=== PATIENT | male | born 1980 | race African-American/Black ===

== ENCOUNTER 2017-05-08 01:55 | Emergency (ER) | payer OTHER ==
[~2017-05-08] VITALS: Ht 175.3 cm; Wt 99.8 kg
--- NOTE | ~2017-05-08 | EKG ---
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 : 1980 Requested By: Melinda Austin Order Number: [id number] MD: David An Measurements Intervals [place] Rate: 96 P: 47 [place]: 184 QRS: -25 QRSD: 103 T: 36 QT: 325 QTc: 411 Interpretive Statements Sinus rhythm Abnormal R-wave progression, late transition Left ventricular hypertrophy No previous ECG available for comparison Electronically Signed On 05-08-2017 8:28:36 CDT by David An [email or web address] <ELECTRONICALLY SIGNED> By: David An MD, [facility] 05/08/17 0828 0201 020 David An MD, FACC /EPI
--- NOTE | ~2017-05-08 | EKG ---
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
[2017-05-08 02:25] LABS: ABSOLUTE NEUTROPHILS 6.2 thou/uL (1.4-8.2); BASOPHILS 0.9 % (0.0-2.0); EOSINOPHILS 1.1 % (0.0-3.0); HEMATOCRIT 43.7 % (42.0-52.0); HEMOGLOBIN 15.4 gm/dL (14.0-18.0); LYMPHOCYTES 39.9 % (24.0-44.0); MANUAL DIFF NO; MCH 30.4 pg (26.0-34.0); MCHC 35.3 g/dL (28.0-37.0); MCV 86.1 fL (80.0-100.0); MONOCYTES 6.6 % (1.0-8.0); PLATELET COUNT 216 thou/uL (150-400); POLYS 51.5 % (36.0-66.0); RBC 5.08 mil/uL (4.50-6.00); RDW 13.2 % (10.5-14.5); WBC 12.1 thou/uL (4.0-11.0)
[2017-05-08 02:32] LABS: ANION GAP 8 mmol/L (7-16); BUN 11 mg/dL (7-18); CALCIUM 9.3 mg/dL (8.5-10.1); CHLORIDE 103 mmol/L (98-107); CO2 28 mmol/L (21-32); CREATININE 1.2 mg/dL (0.7-1.3); GLUCOSE 157 mg/dL (74-106); POTASSIUM 3.5 mmol/L (3.5-5.1); SODIUM 139 mmol/L (136-145)
[2017-05-08 02:41] LABS: ALBUMIN 3.9 g/dL (3.4-5.0); ALKALINE PHOSPHATASE 72 U/L (46-116); DIRECT BILIRUBIN < 0.1 mg/dL (<0.1-0.3); SGOT 37 U/L (15-37); SGPT 49 U/L (30-65); TOTAL BILIRUBIN 0.5 mg/dL (<0.1-1.0); TOTAL PROTEIN 8.2 g/dL (6.4-8.2); TROPONIN-I 0.06 ng/mL (<0.04-0.07)
[2017-05-08 04:37] VITALS: BP 127/83
== END 2017-05-08 04:38 | disposition home or self-care (01) ==
LOC: ER 01:55
PROVIDERS: Emergency Medicine
DX: R07.89 Other chest pain (principal); F10.99 Alcohol use, unspecified with unspecified alcohol-induced disorder

== ENCOUNTER 2018-10-21 06:57 | Emergency (ER) | payer OTHER ==
[~2018-10-21] VITALS: Ht 175.3 cm; Wt 99.8 kg
[2018-10-21] MEDS ORDERED: ATIVAN0.5 MG PO (07:25)
[2018-10-21] MEDS ORDERED: LISINOPRIL-HCT1 EAC1 PO (07:25)
[2018-10-21] MEDS ORDERED: OXYCODONE-ACET1 EACH PO (07:26)
[2018-10-21 07:35] LABS: HEMOGLOBIN 15.1 gm/dL (14.0-18.0); MCHC 34.3 g/dL (28.0-37.0); MCV 87.3 fL (80.0-100.0); RBC 5.04 mil/uL (4.50-6.00); RDW 12.8 % (10.5-14.5); WBC 6.2 thou/uL (4.0-11.0)
[2018-10-21 07:38] LABS: ANION GAP 10 mmol/L (7-16); BUN 15 mg/dL (7-18); CALCIUM 8.8 mg/dL (8.5-10.1); CHLORIDE 105 mmol/L (98-107); CO2 26 mmol/L (21-32); CREATININE 1.1 mg/dL (0.7-1.3); GLUCOSE 114 mg/dL (74-106); POTASSIUM 3.5 mmol/L (3.5-5.1); SODIUM 141 mmol/L (136-145)
--- NOTE | 2018-10-21 07:40 | EKG ---
[address] [address] [facility] [place] [address] ELECTROCARDIOGRAM REPORT Name: NICK REBOLLAR Room #: [facility] M.R.#: [id number] ������������������ Admission: ������������������ Attend Phys: Discharge: ������������������ Date of : 78 Report #: [id number] ����������������������������������������������������������������� [id number] THIS REPORT FOR: //name// [facility] ED Test Date: 2018-10-21 Test Time: 07:12:35 Pat Name: NICK REBOLLAR Department: Room: Gender: M Hematology Technician: Hunter CHAPMAN RN : 1980 Requested By: Cristobal Conklin Order Number: [id number] MD: David An Measurements Intervals [place] Rate: 84 P: 52 SD: 185 QRS: -17 QRSD: 107 T: 29 QT: 347 QTc: 411 Interpretive Statements Sinus rhythm Nonspecific intraventricular conduction delay Compared to ECG 05/08/2017 04:00:16 No significant changes Electronically Signed On 10-21-2018 7:40:45 SCRAP CHARGER by David An [email or web address] ��������������������������������������������� <ELECTRONICALLY SIGNED> ���������������������������������������� By: David An MD, [facility] ��������������������������������������������� 10/21/18 0740 0712 1 David An MD, FACC /EPI
[2018-10-21 07:46] LABS: TROPONIN-I <0.06 ng/mL (<0.06)
[2018-10-21] MEDS ORDERED: NAPROSYN500 MG PO (08:15)
[2018-10-21 08:19] VITALS: BP 111/80
== END 2018-10-21 08:25 | disposition home or self-care (01) ==
LOC: ER 06:57
PROVIDERS: Emergency Medicine
DX: R51 Headache (principal); R07.89 Other chest pain; M79.641 Pain in right hand; I10 Essential (primary) hypertension

== ENCOUNTER 2019-05-01 17:57 | Emergency (ER) | payer OTHER ==
[~2019-05-01] VITALS: Ht 175.3 cm; Wt 112.0 kg
--- NOTE | ~2019-05-01 | EKG ---
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
[~2019-05-01 17:57] MED LIST: ATIVAN0.5 MG PO; LISINOPRIL-HCT1 EAC1 PO; NAPROSYN500 MG PO; OXYCODONE-ACET1 EACH PO
[2019-05-01] MEDS ORDERED: ATIVAN0.5 MG PO (19:20)
[2019-05-01] MEDS ORDERED: LISINOPRIL-HCT1 EAC1 PO (19:20)
[2019-05-01 21:02] VITALS: BP 139/96
== END 2019-05-01 21:02 | disposition home or self-care (01) ==
LOC: ER 17:57
DX: I10 Essential (primary) hypertension (principal); F41.9 Anxiety disorder, unspecified

== ENCOUNTER 2019-06-20 13:34 | Emergency (ER) | payer BC, OTHER ==
[~2019-06-20] VITALS: Ht 177.8 cm; Wt 112.0 kg
[2019-06-20 14:12] LABS: ABSOLUTE NEUTROPHILS 6.8 thou/uL (1.4-8.2); BASOPHILS 0.3 % (0.0-2.0); EOSINOPHILS 0.1 % (0.0-3.0); HEMATOCRIT 42.8 % (42.0-52.0); LYMPHOCYTES 13.3 % (24.0-44.0); MCH 30.7 pg (26.0-34.0); MCHC 35.1 g/dL (28.0-37.0); MCV 87.3 fL (80.0-100.0); MONOCYTES 5.7 % (1.0-8.0); PLATELET COUNT 223 thou/uL (150-400); POLYS 80.6 % (36.0-66.0); RDW 12.6 % (10.5-14.5); WBC 8.4 thou/uL (4.0-11.0)
[2019-06-20 14:27] LABS: ANION GAP 7 mmol/L (7-16); BUN 11 mg/dL (7-18); CALCIUM 9.5 mg/dL (8.5-10.1); CHLORIDE 99 mmol/L (98-107); CO2 30 mmol/L (21-32); CREATININE 1.2 mg/dL (0.7-1.3); GLUCOSE 145 mg/dL (74-106); POTASSIUM 3.1 mmol/L (3.5-5.1); SODIUM 136 mmol/L (136-145)
[2019-06-20 14:36] LABS: MAGNESIUM 1.7 mg/dL (1.8-2.4); TROPONIN-I <0.06 ng/mL (<0.06)
[2019-06-20 15:24] VITALS: BP 133/88
--- NOTE | 2019-06-23 08:54 | EKG ---
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: : 1980 Requested By: Grant Zamora Order Number: [id number] MD: David An Measurements Intervals [place] Rate: 71 P: 42 [place]: 194 QRS: -21 QRSD: 110 T: 18 QT: 381 QTc: 414 Interpretive Statements Sinus rhythm Abnormal R-wave progression, late transition Left ventricular hypertrophy Compared to ECG 05/01/2019 18:17:32 No significant changes Electronically Signed On 06-23-2019 8:54:00 CDT by David An [email or web address] <ELECTRONICALLY SIGNED> By: David An MD, [facility] 06/23/19 0854 1350 1350 David An MD, FACC /EPI
== END 2019-06-20 15:20 | disposition home or self-care (01) ==
LOC: ER 13:34
PROVIDERS: Emergency Medicine
DX: E87.6 Hypokalemia (principal); E83.42 Hypomagnesemia; R53.1 Weakness; I10 Essential (primary) hypertension

== ENCOUNTER 2021-02-27 00:16 | Inpatient (IN) | payer OTHER ==
[~2021-02-27] VITALS: Ht 177.8 cm; Wt 120.7 kg
[2021-02-27 03:30] VITALS: BP 108/75
--- NOTE | 2021-02-27 04:48 | NUR ---
Pt admitted from [facility] after testing positive for covid and c/o of soa, fever, cough and fatigue. Report received from Neha ROBLES from [facility]. Pt has history of htn, hld, diet controlled diabetes, and back surgery with hardware. Admission assessment and history completed. Pt oriented to room, call light and poc. Iv to lac with ns@100cc/hr infusing as ordered. Voiding per adelfo. Telemetry intact reading sr with rates in the 60's.
[2021-02-27 08:03] VITALS: BP 125/85
[2021-02-27 16:41] VITALS: BP 127/78
--- NOTE | 2021-02-27 18:03 | NUR ---
RN ASSUMED PT'S CARE AT 0700AM, PT IS A&OX4, PT IS ON ISOLATION FOR POSITIVE COVID, PT'S VS ARE STABLE, PT IS ON O2 3L/MIN/NC, PT HAS SOB WITH ACTIVITIES, PT GETS UP TO BATH ROOM BY HIMSELF, PT DENIES PAIN BY THIS TIME.
[2021-02-27 19:57] VITALS: BP 132/81
[2021-02-28 02:05] LABS: GLYCOHEMOGLOBIN (HGB A1C) 5.6 % (4.8-5.6)
--- NOTE | 2021-02-28 02:18 | NUR ---
POC FOR MAINTAINING 02 SATURATION. PT CURRENTLY ON 3L WITH NO ISSUES. NO 02 USE AT HOME. A/0 X4. COVID ASSOCIATED WEAKNESS AND LETHARGIC. AD FREDERIC, VOIDS INDEPENDENTLY AND NO OTHER COMPLAINTS. VSS AND AFEBRILE. HOURLY ROUNDING.
[2021-02-28 04:16] VITALS: BP 127/74
[2021-02-28 05:25] LABS: ALBUMIN 3.3 g/dL (3.4-5.0); CALCIUM 8.2 mg/dL (8.5-10.1); CREATININE 1.3 mg/dL (0.7-1.3); PHOSPHORUS 2.7 mg/dL (2.5-4.9); POTASSIUM 3.9 mmol/L (3.5-5.1)
[2021-02-28 07:37] VITALS: BP 129/90
[2021-02-28 08:40] VITALS: BP 129/90
--- NOTE | 2021-02-28 09:46 | NUR ---
Assess due to RD consult for wt change. Admit with COVID+, acute respiratory failure. Chart mentions hx diabetes with no diabetic medications following substantial wt loss. However, called pt for nutrition interview, pt states "I don't have diabetes, and I haven't lost any wt" ?? A1C 5.6. BG slightly elevated but on steroid. Appetite is good. Low nutrition risk.
[2021-02-28 15:13] VITALS: BP 123/89
--- NOTE | 2021-02-28 15:40 | NUR ---
INITIAL ASSESSMENT: GWEN reviewed chart and spoke with nursing and attending physician. Pt was transferred to [facility] from [facility] due to COVID pneumonia. Pt is in Enhanced Isolation. Pt is afebrile and on 4L of O2. Pt is on IV abx and IV steroids. SW placed call to pt's room. Line is busy. Per chart, pt is alert/orientated x 4. Pt lives at home with his family, who also have COVID. Pt listed as patient pay. [employer] to screen pt for Medicaid and/or financial assistance. SW will follow up with pt at a later time and assist as needed with discharge planning.
--- NOTE | 2021-02-28 16:16 | NUR ---
RN ASSUMED PT'S CARE AT 0700AM, PT IS A&OX4, PT IS CONTINUING IV ABX,AND O2 3L/MIN/NC AND BREATHING MANAGEMENT, PT'S SOB HAS IMPROVED, PT'S VS ARE STABLE, PT DENIES PAIN AND SOB AT THIS TIME. PT STAIES COVID ISOLATION , PT GETS UP TO WALK AT HIS ROOM WITHOUT ASSIST.
[2021-02-28 17:06] VITALS: BP 119/73
[2021-02-28 20:39] VITALS: BP 126/83
[2021-03-01 04:02] VITALS: BP 110/76
--- NOTE | 2021-03-01 06:06 | NUR ---
NO SIGNIFICANT EVENTS DURING THE NIGHT. O2 TITRATED DOWN FROM 3L TO 2L NC. SPO2 >92%. UP AD FREDERIC TO BTR TO VOID. GOOD URINE OUTPUT. LOW GRADE FEVER (T-MAX 99.4). PT C/O HEADACHE DURING THE NIGHT. TYLENOL GIVEN, WHICH RESULTED IN COMPLETE PAIN RELIEF. PT C/O MILD SOA W/ EXERTION. NO S/S RESP DISTRESS NOTED. PROGRESSING TOWARD POC GOALS. WILL GIVE REPORT TO ONCOMING NURSE.
[2021-03-01 06:08] LABS: ALBUMIN 3.2 g/dL (3.4-5.0); CALCIUM 7.7 mg/dL (8.5-10.1); CREATININE 1.4 mg/dL (0.7-1.3); PHOSPHORUS 4.3 mg/dL (2.5-4.9); POTASSIUM 3.4 mmol/L (3.5-5.1)
[2021-03-01 06:55] VITALS: BP 111/70
[2021-03-01 08:30] VITALS: BP 111/70
--- NOTE | 2021-03-01 12:54 | NUR ---
GWEN reviewed chart and spoke with nursing and attending physician. Pt remains in Enhanced Isolation due to COVID. Pt is afebrile and on 2L of O2. Pt is on IV abx, IV steroids and IV lasix. Discharge home is anticipated in 1-2 days. GWEN spoke with pt via phone. Introduced role of GWEN. Pt is alert/orientated x 4. Pt report he lives at home with his family in [place]. Prior to admission, pt was independent with ADLs. Pt is employed. No hx of HH or post-acute placement. Pt states his insurance recently changed and he is going to return to [facility] where he used to receive primary care. Pt reports that he is under his 's insurance. Pt does not know the insurance or have his card with him. GWEN updated UR RN. Plan is for pt to discharge home when medically stable. GWEN is following to assist as needed with discharge planning.
[2021-03-01 15:09] VITALS: BP 111/77
--- NOTE | 2021-03-01 16:49 | NUR ---
RN ASSUMED PT'S CARE AT 0700AM, PT IS A&OX4, PT'S O2 HAS REDUCED TO 2L/MIN/NC FROM 3L/MIN/NC, PT 'S VS ARE STABLE BY THIS TIME, PT IS CONTINUING IV ABX, PT'S SOB HAS IMPROVED, PT DENIES PAIN AND N/V BY THIS TIME.
[2021-03-01] MEDS ORDERED: DESYREL150 MG PO (20:02)
[2021-03-01 20:38] VITALS: BP 133/83
[2021-03-02 04:02] VITALS: BP 113/72
[2021-03-02 04:03] LABS: ALBUMIN 3.2 g/dL (3.4-5.0); CALCIUM 7.8 mg/dL (8.5-10.1); CREATININE 1.6 mg/dL (0.7-1.3); PHOSPHORUS 4.2 mg/dL (2.5-4.9)
--- NOTE | 2021-03-02 04:24 | NUR ---
TRAZODONE GIVEN AT BEDTIME FOR SLEEP. PT HAS BEEN SLEEPING MOST OF THE NIGHT. RESPIRATIONS EVEN AND UNLABORED. O2 INCREASED FROM 1L TO 3L NC TO MAINTAIN SPO2 >90% WHILE PT WAS SLEEPING. PT HAS BEEN AFEBRILE DURING THE NIGHT. PROGRESSING TOWARD POC GOALS. WILL CONTINUE TO MONITOR FURTHER.
[2021-03-02 08:05] VITALS: BP 112/75
[2021-03-02] MEDS ORDERED: PREDNISONE 20 M20 MG PO (10:22)
[2021-03-02] MEDS ORDERED: CEFUROXIME500 MG PO (10:22)
[2021-03-02] MEDS ORDERED: AMBIEN5 MG PO (10:43)
[2021-03-02 12:38] VITALS: BP 112/75
--- NOTE | 2021-03-02 15:25 | NUR ---
DISCHARGE NOTE: GWEN reviewed chart and spoke with nursing and attending physician. Pt is medically stable for discharge home today. Rest/exercise oximetry completed. Pt needs 2L O2 continuously. GWEN obtained script. GWEN spoke with pt via phone to discuss need for home O2. Pt verbalized understanding. DME options discussed with pt. GWEN explained that insurance info will be checked for coverage for home O2. Pt verbalized understanding. No preference of DME provider. GWEN contacted [facility] and spoke with liaison. [facility] will check pt's insurance coverage, however, pt does qualify for two months of O2 due to COVID. Pt will not be billed for the two months. Should pt need O2 after two months, [facility] will submit to pt's insurance. Portable O2 tank delivered to pt's room. Pt's family to provide transportation home. Contact info for [facility] placed in pt's discharge summary. GWEN discussed case with LOY RN. Updated face sheet faxed to [facility]. Spoke with Sasha at [facility] to provide update and confirmed info was received. No additional SW needs identified at this time, but is available to assist should needs arise.
--- NOTE | 2021-03-02 15:39 | NUR ---
RN ASSUMED PT'S CARE AT 0700-1400PM, PT IS A&OX4, PT IS ON O2 2L/MIN/NC ,PT'S VS ARE STABLE, PT 'S SOB HAS IMPROVED, RN RECEIVED ORDER TO DC PT TO HOME WITH O2 2L/MIN/NC, PT UNDERSTANDED DC TEACHING WELL, PT HAS O2 TANK WITH HIM TO GO HOME, LANDSCAPE AND YARDWORK LABORER SENT PT TO PT'S CAR IN HOSPITAL FRONT BY W/C , PT DC TO HOME AT 1400PM.
== END 2021-03-02 14:35 | disposition home or self-care (01) | DRG 177 ==
LOC: 3W 00:16
PROVIDERS: Nurse Practitioner Family; ADMIT Hospitalist; ATTEND Hospitalist
DX: U07.1 COVID-19 (principal); J96.01 Acute respiratory failure with hypoxia; J12.82 Pneumonia due to coronavirus disease 2019; N17.9 Acute kidney failure, unspecified; I10 Essential (primary) hypertension; E78.5 Hyperlipidemia, unspecified; E11.9 Type 2 diabetes mellitus without complications; F41.9 Anxiety disorder, unspecified; Z79.899 Other long term (current) drug therapy
CPT/HCPCS: 10779; 10879

== ENCOUNTER 2021-03-04 18:23 | Inpatient (IN) | payer OTHER ==
[~2021-03-04] VITALS: Ht 177.8 cm; Wt 128.4 kg
[~2021-03-04 18:23] MED LIST changes: +AMBIEN5 MG PO; +CEFUROXIME500 MG PO; +DESYREL150 MG PO; +PREDNISONE 20 M20 MG PO
[2021-03-04 18:50] VITALS: BP 143/86
[2021-03-04 19:08] LABS: ABSOLUTE NEUTROPHILS 15.7 thou/uL (1.4-8.2); EOSINOPHILS 0.1 % (0.0-3.0); HEMATOCRIT 43.6 % (42.0-52.0); LYMPHOCYTES 2.6 % (24.0-44.0); MCH 30.3 pg (26.0-34.0); MCHC 34.5 g/dL (28.0-37.0); MCV 87.9 fL (80.0-100.0); PLATELET COUNT 247 thou/uL (150-400); POLYS 94.3 % (36.0-66.0); RBC 4.96 mil/uL (4.50-6.00); RDW 13.2 % (10.5-14.5); WBC 16.6 thou/uL (4.0-11.0)
[2021-03-04 19:23] LABS: ANION GAP 4 mmol/L (7-16); BUN 24 mg/dL (7-18); CALCIUM 8.9 mg/dL (8.5-10.1); CHLORIDE 101 mmol/L (98-107); CO2 36 mmol/L (21-32); CREATININE 1.5 mg/dL (0.7-1.3); GLUCOSE 161 mg/dL (74-106); POTASSIUM 3.7 mmol/L (3.5-5.1); SODIUM 141 mmol/L (136-145)
[2021-03-04 19:30] LABS: ALBUMIN 3.1 g/dL (3.4-5.0); SGOT 34 U/L (15-37); SGPT 50 U/L (16-63); TOTAL BILIRUBIN 0.7 mg/dL (0.2-1.0); TOTAL PROTEIN 8.6 g/dL (6.4-8.2); TROPONIN-I <0.06 ng/mL (<0.06)
[2021-03-04 19:38] LABS: BE(vivo) 6.4 mmol/L (-2 to +3); HCO3 31.8 mmol/L (22.0-26.0); PCO2 47.6 mmHg (35.0-45.0); pH 7.443 (7.360-7.450)
[2021-03-04 19:39] LABS: PO2 49.3 mmHg (80.0-100.0)
--- NOTE | 2021-03-04 21:42 | NUR ---
SPOKE WITH PT ABOUT THE STATUS OF HER . PT 'S INFORMED OF THE PT BEING TRANSFERRED TO THE ICU AT THIS TIME.
--- NOTE | 2021-03-04 22:42 | NUR ---
pt arrived to room 240 from er at 2210. patient transfered to icu bed with no complications. Patient placed on monitor. patient is intubated and sedated with propofol. dr. kearns notified of patient arrival. new orders pending. PIVs, OG, and Vuong in place with no complications. Will continue to monitor. Patient , Trena [phone], called and updated of POC by the RN. Trena is requesting follow up call from pulm doc in the am. This RN will notify Dr. Kearns of request.
[2021-03-04 23:00] VITALS: BP 80/40
[2021-03-04 23:01] LABS: BE(vivo) 3.3 mmol/L (-2 to +3); HCO3 29.6 mmol/L (22.0-26.0); PCO2 51.8 mmHg (35.0-45.0); PO2 98.2 mmHg (80.0-100.0); pH 7.375 (7.360-7.450); sO2 97.2 % (92.0-98.0)
[2021-03-04 23:02] VITALS: BP 82/39
[2021-03-04 23:44] VITALS: BP 117/76
[2021-03-05] VITALS (48 sets, daily range): BP systolic 79–150; BP diastolic 43–85
[2021-03-05 04:16] LABS: ABSOLUTE NEUTROPHILS 12.5 thou/uL (1.4-8.2); BASOPHILS 0.2 % (0.0-2.0); EOSINOPHILS 0.2 % (0.0-3.0); HEMATOCRIT 38.4 % (42.0-52.0); LYMPHOCYTES 11.7 % (24.0-44.0); MCH 30.4 pg (26.0-34.0); MCHC 33.9 g/dL (28.0-37.0); MCV 89.6 fL (80.0-100.0); MONOCYTES 3.8 % (1.0-8.0); PLATELET COUNT 214 thou/uL (150-400); POLYS 84.1 % (36.0-66.0); RBC 4.29 mil/uL (4.50-6.00); RDW 13.3 % (10.5-14.5); WBC 14.9 thou/uL (4.0-11.0)
[2021-03-05 04:19] LABS: INR 1.11
[2021-03-05 04:31] LABS: ALBUMIN 2.3 g/dL (3.4-5.0); CALCIUM 7.6 mg/dL (8.5-10.1); CREATININE 1.5 mg/dL (0.7-1.3); POTASSIUM 3.9 mmol/L (3.5-5.1); TOTAL BILIRUBIN 0.2 mg/dL (0.2-1.0); TOTAL PROTEIN 6.7 g/dL (6.4-8.2)
--- NOTE | 2021-03-05 07:46 | NUR ---
ORDERS FOR EVAL AND TREAT HOWEVER Pt IN ICU, INTUBATED AND SEDATED. WILL PLACE Pt ON HOLD AND AWAIT NEW ORDERS WHEN APPROPRIATE FOR THERAPY
--- NOTE | 2021-03-05 09:51 | EKG ---
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: : 1980 Requested By: Linsey Taylor Order Number: [id number] MD: Ariel Pagan Measurements Intervals [place] Rate: 106 P: 38 [place]: 152 QRS: -36 QRSD: 98 T: 35 QT: 311 QTc: 413 Interpretive Statements Sinus tachycardia Left atrial enlargement Abnormal R-wave progression, late transition Left ventricular hypertrophy Baseline wander in lead(s) I,III,aVL,V1 Compared to ECG 06/20/2019 13:50:18 Atrial abnormality now present Sinus rhythm no longer present Electronically Signed On 03-05-2021 9:51:08 CDT by Ariel Pagan [email or web address] <ELECTRONICALLY SIGNED> By: Ariel Pagan MD, FAC 03/05/21 0951 1830 1830 Ariel Pagan MD, [facility] /EPI
--- NOTE | 2021-03-05 10:21 | NUR ---
VAT CONSULTED FOR CVAD. PT'S LABS,MEDS,HX,ORDER AND CONSENT VERIFIED. ALFRED WAS WIDELY PATENT WITH USG. 6FR TL POWER JACC 25CM INSERTED TO 3CM EXTERNAL X1 STICK. STAT CXR ORDERED.
--- NOTE | 2021-03-05 10:55 | NUR ---
Pt VSS, resting on vent. VAT RN placed new central line, sedation drips moved to central line. Triglycerides elevated this AM, add Versed and Dex to wean Propofol. Spoke with , Vin, about pt condition and to get consent for central line. 4 digit code given to , RN explained importance of keeping code private and her role as primary contact.
[2021-03-06] VITALS (52 sets, daily range): BP systolic 114–148; BP diastolic 68–97
[2021-03-06 05:25] LABS: ABSOLUTE NEUTROPHILS 6.9 thou/uL (1.4-8.2); BASOPHILS 0.1 % (0.0-2.0); HEMATOCRIT 37.5 % (42.0-52.0); HEMOGLOBIN 12.9 gm/dL (14.0-18.0); MCH 30.4 pg (26.0-34.0); MCHC 34.3 g/dL (28.0-37.0); MCV 88.7 fL (80.0-100.0); PLATELET COUNT 253 thou/uL (150-400); POLYS 89.9 % (36.0-66.0); RBC 4.23 mil/uL (4.50-6.00); RDW 13.3 % (10.5-14.5); WBC 7.7 thou/uL (4.0-11.0)
[2021-03-06 05:54] LABS: ALBUMIN 2.1 g/dL (3.4-5.0); ANION GAP 9 mmol/L (7-16); BUN 24 mg/dL (7-18); CHLORIDE 106 mmol/L (98-107); CO2 26 mmol/L (21-32); CREATININE 1.2 mg/dL (0.7-1.3); DIRECT BILIRUBIN < 0.1 mg/dL (<0.1-0.2); GLUCOSE 166 mg/dL (74-106); PHOSPHORUS 3.1 mg/dL (2.5-4.9); POTASSIUM 4.4 mmol/L (3.5-5.1); SGOT 44 U/L (15-37); SGPT 39 U/L (30-65); SODIUM 141 mmol/L (136-145); TOTAL BILIRUBIN 0.4 mg/dL (0.2-1.0); TOTAL PROTEIN 6.7 g/dL (6.4-8.2)
--- NOTE | 2021-03-06 06:00 | NUR ---
REMAINS INTUBATED AND SEDATED WITH PRECEDEX 0.6 MCG VERSED 5 MG AND FENTANYL GTT 7.5 MG/HR WHEN SUCTIONED PT BECOMES VERY AGITATED AND COUGHING O2 SAT DROP EASILY.. SPOKE WITH PTS AT LENGTH THIS AM. SHE WANTS THE DOCTORS TO CALL HER THIS AM. NOT PROGRESSING TOWARD GOALS. REMAINS IN ENHANSED PRECAUTIONS FOR COVID 19.
[2021-03-06 06:06] LABS: HIV ANTIBODY Non Reactive (Non Reactive)
--- NOTE | 2021-03-06 12:22 | NUR ---
Spoke with pt on phone RE: bronchoscopy from this morning and updated on general status.
--- NOTE | 2021-03-06 16:15 | HC ---
[facility] [place] [address] CONSULTATION Name: NICK REBOLLAR Room #: 240-P [facility] IN M.R.#: [id number] Admission: 03/04/21 Attend Phys: Nilson Jordan Discharge: Date of : 78 Report #: [id number] THIS REPORT FOR: cc: Michelle Pop Beth RNP Geha, Daniel J. MD ~ DOC #: [id number] Erick Agrawal MD DATE OF SERVICE: 03/05/2021 INFECTIOUS DISEASE CONSULTATION REASON FOR CONSULTATION: I was asked to evaluate concerning COVID pneumonia. HISTORY OF PRESENT ILLNESS: The patient is a 40-year-old with underlying hypertension, diabetes, who presented on 03/04/2021 with respiratory failure. Initially diagnosed with COVID pneumoniae, 02/03/2021, treated with antibiotic therapy, corticosteroids and required oxygen at the time of discharge. He was on 3 liters of oxygen at that time. Since discharge, he has had progressive cough and shortness of breath. He was seen at [facility] and transferred to [facility] for further care. No documented fever, chills or sweats. His and daughter also were infected at the onset. Subsequently, the patient has been intubated. He is on 100% FIO2 and PEEP of 10 with small to moderate amount of tracheal secretions. Hemodynamically, he has been stable on just a low dose of Levophed after intubation. He is receiving IV fluids. Blood glucose has been under control. He has been sedated. There has been no report of travel. No previous history of sinopulmonary disease. No HIV risk factors reported. REVIEW OF SYSTEMS: A 14-point review of system was negative other than what has been described above. He was sedated, but review of the records noted no other issues. ALLERGIES: None known. MEDICATIONS: As noted on his MAR. I have discussed with pulmonary critical care service and we have begun corticosteroids high dose along with Actemra, Remdesivir and he was continued on vancomycin and Zosyn. PAST MEDICAL HISTORY: Hypertension and hyperlipidemia. He has had lumbar back surgery with hardware in place, right shoulder surgery, diet-controlled diabetes. FAMILY HISTORY: Not currently available as the patient was unable to discuss. SOCIAL HISTORY: He is a nonsmoker. No significant alcohol intake reported, [address] [address] CONSULTATION Name: NICK REBOLLAR Room #: [address] [place] [address] IN M.R.#: [id number] Admission: 03/04/21 Attend Phys: Nilson Jrodan Discharge: Date of : 78 Report #: [id number] although he does use alcohol and no recreational drug use. Unclear as to his occupation. PHYSICAL EXAMINATION: VITAL SIGNS: Temperature was 38 degrees, pulse is 86, blood pressure 114/62, respiratory rate 17. GENERAL: Orally intubated. Left IJ catheter in place without erythema. There is no rash or adenopathy identified. HEENT: Without scleral icterus or conjunctivitis. Mouth without mucositis. NECK: Supple. LUNGS: Coarse breath sounds bilaterally with consolidation heard in the left base posteriorly. HEART: Regular, without appreciable murmur, gallop or rub. ABDOMEN: Mildly obese with no hepatosplenomegaly or mass appreciated. Indwelling Vuong catheter in place with no scrotal masses, lesions. RECTAL: Examination not performed. EXTREMITIES: Without clubbing, cyanosis or edema. The patient was able to move all extremities. LABORATORY DATA: Reviewed. His hemoglobin is 13, WBC 14.9, platelets 214,000. ABG on 100% FiO2 showed a pO2 of 98, CO2 51, pH 7.3. INR 1.1. Fibrinogen 711. D-dimer 1.1, creatinine 1.5, glucose 127, hemoglobin A1c was 5.6. AST 43, ALT 39, alkaline phosphatase 51, LDH 497. Troponin less than 0.6. C-reactive protein 213. BNP 28. Procalcitonin 0.12. COVID PCR positive, influenza negative. Blood and sputum cultures are negative to date. Legionella and strep pneumo antigens are negative. Chest x-ray, bilateral pulmonary infiltrates. CT scan of the chest, bilateral infiltrates with consolidation in the left upper and lower lobe regions. No evidence of large vessel pulmonary thrombosis. ASSESSMENT AND PLAN: A 40-year-old with underlying history of hypertension, diet-controlled diabetes, swgw-fw-etpdmivw obesity with COVID-19 pneumonia, progressive pulmonary infiltrates with respiratory failure. He does have some consolidation evident in both lungs in addition to interstitial changes. I have discussed the case in detail with pulmonary critical care service. The patient remains at high risk for further complications. RECOMMENDATION: We will continue corticosteroids, anticoagulation, give dose of Actemra, begin antiviral therapy. Also, continue with antibiotic therapy. We will obtain blood and sputum cultures. Check HIV, TB screening. I have discussed with nursing staff regarding plan of care. MD PHILIPP Emmanuel/DENIS [address] [address] CONSULTATION Name: NICK REBOLLAR Room #: 240-P ADM IN M.R.#: [id number] Admission: 03/04/21 Attend Phys: Nilson Jordan Discharge: Date of : 78 Report #: [id number] <ELECTRONICALLY SIGNED> By: Erick Agarwal MD 03/06/21 1615 1202 07 Erick Agrawal MD /nt
--- NOTE | 2021-03-06 21:23 | NUR ---
AT CHANGE OF SHIFT, RECIEVED PT FROM DAYSHIFT RN AT 5MG/HR VERSED, 100MCG/HR FENTANYL, 70MCG/KG/HR OF PROPOFOL, 1MCG/KG/MIN OF PRECEDEX
--- NOTE | 2021-03-06 22:45 | NUR ---
UNABLE TO GET A TEMP VIA AXILLARY BL, ORAL, NOT STABLE TO TURN FOR RECTAL TEMP. OBTAINED TEMP SENSING MCINTOSH AND REPLACED MCINTOSH. TEMP READ 33.5C.
[2021-03-07] VITALS (44 sets, daily range): BP systolic 101–138; BP diastolic 49–86
--- NOTE | 2021-03-07 00:39 | NUR ---
PT BEGINNING TO DESAT AROUND 2345, CHANGED O2 PROBE, NO INDICATION TO SUCTION, HR HAS INCREASED FROM 60 TO 78, NOTED THAT RR HAS SLIGHTLY INCREASED FROM 14-15 TO 18-19, DOES NOT RESPOND TO PAIN, PUPILS ARE 1, REACTIVE, PT APPEARS TO BE SEDATED APPROPRIATELY. CALL TO RT, TROUBLESHOOTING OF VENT AND PT REVEALED NO FIX; BL BREATH SOUNDS HEARD, NO SUBQ AIR NOTED. CALL TO DR GUTIERREZ AT 0012 WITH ALL THIS INFORMATION. ORDERS TO INCREASE PEEP TO 14 FROM 12, NOW AT 100% FI02. NO CHANGE IN 02 SAT FOR 18 MINUTES, CALL BACK TO BRENDA, GAVE UPDATE, SATS 77-80%, INCREASED SEDATION SLIGHTLY, GAVE ALL SEDATION DOSES, BP AND HR. ORDERS TO INCREASE PEEP TO 16 AND GET CXR EARLY. MAY PRONE PT IF NEEDED.
[2021-03-07 04:15] LABS: HEMATOCRIT 37.5 % (42.0-52.0); HEMOGLOBIN 12.9 gm/dL (14.0-18.0); MCH 31.1 pg (26.0-34.0); MCHC 34.5 g/dL (28.0-37.0); MCV 90.2 fL (80.0-100.0); RBC 4.16 mil/uL (4.50-6.00); RDW 13.8 % (10.5-14.5); WBC 15.9 thou/uL (4.0-11.0)
[2021-03-07 04:32] LABS: ALBUMIN 2.1 g/dL (3.4-5.0); ANION GAP 4 mmol/L (7-16); BUN 27 mg/dL (7-18); CALCIUM 7.8 mg/dL (8.5-10.1); CHLORIDE 112 mmol/L (98-107); CO2 27 mmol/L (21-32); CREATININE 1.3 mg/dL (0.7-1.3); DIRECT BILIRUBIN < 0.1 mg/dL (<0.1-0.2); SODIUM 143 mmol/L (136-145); TOTAL BILIRUBIN 0.4 mg/dL (0.2-1.0); TOTAL PROTEIN 6.6 g/dL (6.4-8.2)
[2021-03-07 04:33] LABS: GLUCOSE 181 mg/dL (74-106); POTASSIUM 5.6 mmol/L (3.5-5.1)
[2021-03-07 04:43] LABS: SGOT 38 U/L (15-37); SGPT 33 U/L (16-63)
[2021-03-07 05:25] LABS: BE(vivo) -2.6 mmol/L (-2 to +3); HCO3 27.9 mmol/L (22.0-26.0); PO2 80.7 mmHg (80.0-100.0); sO2 92.2 % (92.0-98.0)
[2021-03-07 05:26] LABS: PCO2 77.9 mmHg (35.0-45.0); pH 7.172 (7.360-7.450)
--- NOTE | 2021-03-07 10:10 | NUR ---
Nutrition: Consulted for tube feeding recs. REC Vital HP to run at 20 mL/hr with current propofol rate. If able to D/C IVFs and order water flushes, rec add beneprotein powder in flushes.
--- NOTE | 2021-03-07 11:27 | NUR ---
Spoke with , Vin, gave status update and answered questions RE: nutrition and sedatiobn.
[2021-03-07 21:01] LABS: BE(vivo) 0.8 mmol/L (-2 to +3); PO2 119.6 mmHg (80.0-100.0); sO2 97.3 % (92.0-98.0)
[2021-03-07 21:02] LABS: pH 7.202 (7.360-7.450)
[2021-03-07 21:03] LABS: PCO2 80.8 mmHg (35.0-45.0)
[2021-03-08] VITALS (25 sets, daily range): BP systolic 127–154; BP diastolic 74–94
[2021-03-08 05:37] LABS: ABSOLUTE NEUTROPHILS 14.4 thou/uL (1.4-8.2); BASOPHILS 0.2 % (0.0-2.0); HEMATOCRIT 36.8 % (42.0-52.0); HEMOGLOBIN 12.8 gm/dL (14.0-18.0); MCH 31.3 pg (26.0-34.0); MCHC 34.9 g/dL (28.0-37.0); MCV 89.7 fL (80.0-100.0); PLATELET COUNT 293 thou/uL (150-400); POLYS 89.8 % (36.0-66.0); RBC 4.11 mil/uL (4.50-6.00); RDW 13.7 % (10.5-14.5); WBC 16.1 thou/uL (4.0-11.0)
[2021-03-08 05:46] LABS: ANION GAP 4 mmol/L (7-16); BUN 25 mg/dL (7-18); CHLORIDE 112 mmol/L (98-107); CO2 30 mmol/L (21-32); CREATININE 1.3 mg/dL (0.7-1.3); DIRECT BILIRUBIN < 0.1 mg/dL (<0.1-0.2); POTASSIUM 4.7 mmol/L (3.5-5.1); SGPT 21 U/L (30-65); SODIUM 146 mmol/L (136-145); TOTAL BILIRUBIN 0.3 mg/dL (0.2-1.0); TRIGLYCERIDE 452 mg/dL (<150)
[2021-03-08 06:00] LABS: GLUCOSE 157 mg/dL (74-106)
[2021-03-08 06:21] LABS: SGOT 23 U/L (15-37)
[2021-03-08 06:33] LABS: D-DIMER 0.26 ug/mLFEU (0.19-0.50); INR 1.25; PROTIME 13.5 Seconds (10.5-12.1)
[2021-03-08] MEDS ORDERED: SOLU-MEDRO125 MG/23 IV PUSH (11:28)
[2021-03-08] MEDS ORDERED: ACETYLCYST200 MG/1 M INH (11:28)
[2021-03-08] MEDS ORDERED: PULMICORT0.5 MG/22 INH (11:28)
[2021-03-08] MEDS ORDERED: ENOXAPARIN120 MG/0.1 SUBQ (11:28)
[2021-03-08] MEDS ORDERED: VANCO 1 GR1 GM/250 M IVPB (11:29)
[2021-03-08] MEDS ORDERED: VEKLURY100 MG IV (11:30)
[2021-03-08] MEDS ORDERED: ZOSYN 3.373.375 GM/1 IV (11:30)
--- NOTE | 2021-03-08 15:30 | NUR ---
PATIENT ACCEPTED FOR TRANSFER TO [facility]. DISCHARGE ORDERS COMPLETE. CHART COPY MADE. REPORT CALLED TO RECIEVING RN. AMBULANCE TRANSPORT ARRANGED [facility], WAITING FOR ARRIVAL FOR TRANSPORT, UNABLE TO GIVE ETA - STATES "NEXT IN LINE". SPOKE WITH THIS MONRING VS TELEPHONE. SET UP IPAD FOR FACETIME SESSION IN PATIENT ROOM. ANSWERED ALL QUESTIONS. 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 PATIENT STABLE THROUGH OUT THE DAY.
--- NOTE | 2021-03-08 16:52 | NUR ---
patient discharged with [facility] transport at 1650. updated and reciving rn notifed of depart.
[2021-03-09 22:06] LABS: HISTOPLASMA MYCELIAL-CF Negative (Neg:<1:2)
--- NOTE | 2021-03-10 15:08 | PATH ---
[facility] [address] [place] [address] PATHOLOGY RPT PROCEDURE Name: NICK REBOLLAR Room #: 240-P [facility] IN M.R.#: [id number] Admission: 03/04/21 Date of : 78 Discharge: 03/08/21 Report #: [id number] Path Case #: [id number] Note [facility] Accession Number: [id number] TESTS RESULT FLAG UNITS REF RANGE LAB Clinician Provided Cytology Information No. of containers..01 Other (Miscellaneous) Source: RUL BAL DIAGNOSIS: RUL BAL NEGATIVE FOR MALIGNANT EPITHELIAL CELLS. REACTIVE BRONCHIAL CELLS ARE PRESENT. PULMONARY MACROPHAGES PRESENT, INDICATIVE OF LOWER RESPIRATORY TRACT SAMPLING. Pathologist ICD10: 02 J96.20 Signed out by: 02 Lorin Mayo MD, Pathologist NPI- [id number] Performed by: 01 Cristobal Jacob, [employer] Associate ([facility]) Gross description: 01 10ML, CLOUDY PINK, 1 TP /LCS 03/09/2021 0024 Local FLAG LEGEND: L-Low Normal,H-High Normal,LL-Alert Low,HH-Alert High <-Panic Low,>-Panic High,A-Abnormal,AA-Critical Abnormal Performed at: [address] [place] [address] Wilber Bloom MD, [address] [address] Lorin Mayo MD, Specimen Comment: A courtesy copy of this report has been sent to [phone] Specimen Comment: [phone], Specimen Comment: Report sent to ,DR PERDUE / DR BROWN Specimen Comment: A duplicate report has been generated due to demographic updates. Performed at: [address], [place], [place] [id number] [address] [address] PATHOLOGY RPT PROCEDURE Name: KETURAHNICK Room #: 240-P [facility] IN M.R.#: [id number] Admission: 03/04/21 Date of : 78 Discharge: 03/08/21 Report #: [id number] Path Case #: [id number] MD Wilber Bloom [place] Phone: [phone]
== END 2021-03-08 16:50 | disposition short-term general hospital (02) | DRG 871 ==
LOC: ER 18:23 → ICU 21:14 → EROBS 21:14 → ICU 22:15
PROVIDERS: Nurse Practitioner Family; Pediatrics; Specialist; ADMIT Hospitalist; ATTEND Hospitalist
PROC: 5A1945Z Respiratory Ventilation, 24-96 Consecutive Hours (ICD-10-PCS; principal; 2021-03-04)
PROC: 0BH17EZ Insertion of Endotracheal Airway into Trachea, Via Natural or Artificial Opening (ICD-10-PCS; principal; 2021-03-04)
PROC: XW033E5 Introduction of Remdesivir Anti-infective into Peripheral Vein, Percutaneous Approach, New Technology Group 5 (ICD-10-PCS; principal; 2021-03-04)
PROC: 5A09357 Assistance with Respiratory Ventilation, Less than 24 Consecutive Hours, Continuous Positive Airway Pressure (ICD-10-PCS; principal; 2021-03-04)
PROC: XW033H5 Introduction of Tocilizumab into Peripheral Vein, Percutaneous Approach, New Technology Group 5 (ICD-10-PCS; principal; 2021-03-04)
PROC: 02HV33Z Insertion of Infusion Device into Superior Vena Cava, Percutaneous Approach (ICD-10-PCS; 2021-03-05)
PROC: 0B9C8ZX Drainage of Right Upper Lung Lobe, Via Natural or Artificial Opening Endoscopic, Diagnostic (ICD-10-PCS; 2021-03-06)
DX: A41.89 Other specified sepsis (principal); U07.1 COVID-19; J12.82 Pneumonia due to coronavirus disease 2019; J80 Acute respiratory distress syndrome; Z68.41 Body mass index [BMI] 40.0-44.9, adult; N17.9 Acute kidney failure, unspecified; E78.5 Hyperlipidemia, unspecified; I10 Essential (primary) hypertension; E66.9 Obesity, unspecified; G89.29 Other chronic pain; M54.9 Dorsalgia, unspecified; R65.20 Severe sepsis without septic shock; E11.65 Type 2 diabetes mellitus with hyperglycemia
CPT/HCPCS: 10078; 10203